=== PATIENT | male | born 2000 | race Two or more races ===

== ENCOUNTER 2019-06-02 15:27 | Emergency (ER) | payer SELFPAY ==
[~2019-06-02] VITALS: Ht 185.4 cm; Wt 74.8 kg
[2019-06-02] MEDS ORDERED: OLANZAPINE 10 MG VIAL IM ONE ×2 (15:33→16:00)
[2019-06-02] MEDS ORDERED: LORAZEPAM INJ 2 MG/ML VIAL ONE (15:34)
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
[2019-06-02] MEDS ORDERED: LORAZEPAM INJ 2 MG/ML VIAL IM ONE (16:00)
--- NOTE | 2019-06-02 19:19 | NUR ---
PT DENIES SUUICIDAL IDEATION NOT HOMICIDAL IDEATION
--- NOTE | 2019-06-02 19:20 | NUR ---
PT AMBULATED ON STEAQDY GAIT W/O ASSIST. PT VERBALIZED THAT HE IS FEELING BETTER. AAOX4. NOT CLINICALLY INTOXICATED, ADMITTED TO USE LSD EARLIER. MD CLEARED PT FOR DISCHARGE.
[2019-06-02 19:23] VITALS: BP 132/90
== END 2019-06-02 19:23 | disposition home or self-care (01) ==
LOC: ER 15:33
DX: T40.8X1A Poisoning by lysergide [LSD], accidental (unintentional), initial encounter (principal); Y92.89 Other specified places as the place of occurrence of the external cause
CPT/HCPCS: 96372 ×2; 99284; J2060; J3490